=== PATIENT | male | born 1985 | race Caucasian/White ===

== ENCOUNTER 2016-06-12 02:09 | Emergency (ER) | payer SELFPAY ==
[2016-06-12] MEDS ORDERED: ATARAX 25 MG PO ONE (02:30)
[2016-06-12] MEDS ORDERED: ATARAX 25 MG ONE (02:34)
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
[2016-06-12 03:08] VITALS: BP 146/80; PULSE 100; O2SAT 96
== END 2016-06-12 03:00 | disposition home or self-care (01) ==
LOC: ED 02:09
DX: B86 Scabies (principal)
CPT/HCPCS: 99282; A9270-GY

== ENCOUNTER 2019-07-01 16:33 | Emergency (ER) | payer MEDICAID ==
[2019-07-01 16:45] VITALS: BP 140/83; PULSE 104; O2SAT 100
--- NOTE | 2019-07-01 17:53 | ERPHSYRPT ---
- History of Present Illness Patient Subjective Stated Complaint: "sore throat" Triage Nursing Assessment: Pt presents alert et oriented. 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 Denies respiratory distress at this time. Oropharynx noted to have errythema. Symmetrical chest expansion. Lungs clear with adequate airflow. Denies nausea/vomitng. Abdomen soft non-tender. Allergies/Adverse Reactions: Penicillins Allergy (Intermediate, Verified 07/01/19 16:38) Hives Immunizations Up to Date: Yes Travel Risk - International Travel Have you traveled outside of the country in past 3 weeks: No Have you or anyone close to you been diagnosed with or: No Do your reside in a community with a known COVID-19 case?: Yes If Yes where:: [facility] - Coronavirus Screening Has patient experienced Coronavirus symptoms: Yes Symptoms experienced: respiratory symptoms (i.e.C[place],shortness of breath), muscle pain Date of fever onset:: 06/26/19 - Past Medical History Pertinent Past Medical History: No ENT History: No Pertinent History Cardiac History: No Pertinent History Respiratory History: Asthma Endocrine Medical History: No Pertinent History Musculoskeletal History: No Pertinent History GI Medical History: No Pertinent History History: No Pertinent History Psycho-Social History: No Pertinent History Male Reproductive Disorders: No Pertinent History - Past Surgical History Past Surgical History: No - Social History Smoking Status: Current every day smoker How long have you smoked: 15 Exposure to second hand smoke: No Drug Use: none Patient Lives Alone: Yes ( and son) - Nursing Vital Signs Nursing Vital Signs: Initial Vital Signs Temperature 98.1 F 07/01/19 16:34 Pulse Rate 104 H 07/01/19 16:34 Respiratory Rate 18 07/01/19 16:34 Blood Pressure 140/83 07/01/19 16:34 O2 Sat by Pulse Oximetry 100 07/01/19 16:34 - Physical Exam SpO2: 100 Lab/Rad Data: Laboratory Results 07/01/19 Range/Units Unknown Group A Strep Antibody DETECTED (NEGATIVE) - Departure Departure Disposition: Home Clinical Impression: Strep pharyngitis Condition: Stable Critical Care Time: No Referrals: DOCTOR,NO FAMILY [Primary Care Provider] - YADIRA BRAGG [ACTIVE STAFF] - Additional Instructions: Discharge/Care Plan TONY SMITH was seen on 07/01/19 in the Emergency Room. The patient was counseled regarding Diagnosis,Lab results, Imaging studies, need for follow up and when to return to the Emergency Room. Prescriptions given: Discharge Note I have spoken with the patient and/or caregivers. I have explained the patient' s condition, diagnosis and treatment plan based on the information available to me at this time. I have answered the patient's and/or caregiver's questions and addressed any concerns. The patient and/or caregivers have as good understanding of the patient's diagnosis, condition and treatment plan as can be expected at this point. The vital signs have been stable. The patient's condition is stable and appropriate for discharge from the emergency department. The patient will pursue further outpatient evaluation with the primary care physician or other designated or consulting physician as outlined in the discharge instructions. The patient and/or caregivers are agreeable to this plan of care and follow-up instructions have been explained in detail. The patient and/or caregivers have received these instruction. The patient/and or caregivers are aware that any significant change in condition or worsening of symptoms should prompt an immediate return to this or the closest emergency department or call 911. Prescriptions: Azithromycin 250 mg [Zithromax 250 MG TABLET] 250 mg PO ZPACK #6 tablet
== END 2019-07-01 18:10 | disposition home or self-care (01) ==
LOC: ED 16:33
DX: J02.0 Streptococcal pharyngitis (principal); J45.909 Unspecified asthma, uncomplicated; Z72.0 Tobacco use
CPT/HCPCS: 87651; 99283

== ENCOUNTER 2021-07-23 12:45 | Emergency (ER) | payer OTHER ==
[2021-07-23] MEDS ORDERED: MORPHINE SULFATE 4 MG INJ IV ONE (13:28)
[2021-07-23] MEDS ORDERED: Sodium Chloride 0.9% 1000 ML 1,000 ML IV STA (13:28)
[2021-07-23] MEDS ORDERED: Zofran 4 MG/2 ML VIAL IV ONE (13:28)
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
[2021-07-23] MEDS ORDERED: Zofran 4 MG/2 ML VIAL ONE (13:35)
[2021-07-23] MEDS ORDERED: Sodium Chloride 0.9% 1000 ML 1,000 ML ONE (13:35)
[2021-07-23] MEDS ORDERED: MORPHINE SULFATE 4 MG INJ ONE (13:35)
[2021-07-23 13:42] LABS: Basophil (Absolute #) 0.05 x10^3/uL (0-0.4); Eosinophil % 0.7 % (0.00-5.0); Eosinophil (Absolute #) 0.11 x10^3/uL (0-0.5); Hematocrit 55.5 % (42-50); Hemoglobin 19.2 g/dL (12.5-18.0); Lymphocyte (Absolute #) 2.74 x10^3/uL (1.0-4.6); Lymphocytes % 17.9 % (24.0-44.0); Mean Cell Volume 91.1 fL (78-100); Mean Corpuscular Hemoglobin 31.5 pg (26-32); Mean Corpuscular Hgb Concent. 34.6 g/dL (32-36); Mean Platelet Volume 9.5 fL (7.5-11.0); Monocyte (Absolute #) 1.52 x10^3/uL (0.0-1.3); Monocytes % 9.9 % (0.0-12.0); Neutrophil % 70.7 % (36.0-66.0); Platelet Count 427 x10^3/uL (150-450); Red Blood Count 6.09 x10^6/uL (4.1-5.6); Red Cell Distribution Width 12.8 % (11.5-14.0); White Blood Count 15.3 x10^3/uL (4.0-10.5)
[2021-07-23 13:59] LABS: Bacteria RARE /HPF (NEGATIVE); Mucus MANY /HPF (NEGATIVE); WBC 0-2 /HPF (0-5)
[2021-07-23 14:00] LABS: Appearance SLIGHTLY CLOUDY (CLEAR); Bilirubin SMALL (NEGATIVE); Glucose NEGATIVE (NEGATIVE); Ketones NEGATIVE (NEGATIVE); RBC TRACE-INTACT Ery/ul (0-5)
[2021-07-23 14:01] LABS: Nitrite NEGATIVE (NEGATIVE); Protein,Urine Dip TRACE (Negative); Urine Cultured Indicated? YES; Urobilinogen 1 mg/dL (0-1)
[2021-07-23 14:02] LABS: Dipstick done @ ? MAIN LAB
[2021-07-23 14:14] LABS: ALBUMIN 4.9 g/dL (3.5-5.0); ALKALINE PHOSPHATASE 34 U/L (38-126); ANION GAP 15.5 MEQ/L (5-15); BLOOD UREA NITROGEN 10 mg/dL (9-20); CHLORIDE 99 mmol/L (98-107); Calcium 10.4 mg/dL (8.4-10.2); Carbon Dioxide 29 mmol/L (22-30); EST GLOMERULAR FILTRATION RATE > 60.0 ML/MIN; Glucose 112 mg/dL (74-106); LIPASE 1114 U/L (23-300); Potassium 4.5 mmol/L (3.5-5.1); SGOT/AST 61 U/L (17-59); SGPT/ALT 116 U/L (0-50); SODIUM 139 mmol/L (137-145); Total Protein 8.6 g/dL (6.3-8.2)
[2021-07-23 17:39] VITALS: BP 99/84; PULSE 68; O2SAT 97
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
== END 2021-07-23 17:38 | disposition home or self-care (01) ==
LOC: ED 12:45
DX: K85.90 Acute pancreatitis without necrosis or infection, unspecified (principal); R74.8 Abnormal levels of other serum enzymes; R10.32 Left lower quadrant pain; R10.12 Left upper quadrant pain; S70.212A Abrasion, left hip, initial encounter; S40.211A Abrasion of right shoulder, initial encounter; S30.810A Abrasion of lower back and pelvis, initial encounter; V86.06XA Driver of dirt bike or motor/cross bike injured in traffic accident, initial encounter; Y93.55 Activity, bike riding; Z72.0 Tobacco use; Z79.891 Long term (current) use of opiate analgesic
CPT/HCPCS: 36000; 36415; 71260; 74177; 80053; 81015; 82550; 83690; 85025; 87086; 96360; 96374; 96375; 99284; J2270; J2405

== ENCOUNTER 2022-08-04 17:58 | Emergency (ER) | payer OTHER ==
[2022-08-04 18:14] VITALS: BP 139/100; PULSE 102; O2SAT 98
--- NOTE | 2022-08-04 18:37 | ERPHSYRPT ---
- History of Present Illness Time Seen by Provider: 08/04/22 18:36 Source: patient Exam Limitations: no limitations Patient Subjective Stated Complaint: Pt twisted his right ankle in a hole in a yard yesterday and then did it again today in another yard Triage Nursing Assessment: Pt brought to the ER by his , hypertensive, rates pain as 09/10, was vomiting at home due to the pain, right lateral ankle swollen but no bruising, unable to place weight on it, pulse is normal, cap refil is normal, denies any other injuries Physician History: Pt c/o ankle pain, right. Sustained injury yesterday, but pain and swelling worsening . Lawrence immediate pain on the lateral side. Was unable to ambulate after incident. + h/o previous ankle injuries. Method of Injury: fell, twisted Occurred: yesterday Quality: constant, sharpness, throbbing Severity of Pain-Max: severe Severity of Pain-Current: severe Lower Extremities Pain: ankle: right Modifying Factors: Improves With: pain medication, rest. Worsens With: movement Associated Symptoms: unable to bear weight Allergies/Adverse Reactions: Penicillins Allergy (Intermediate, Verified 08/04/22 18:14) Hives Home Medications: Venlafaxine HCl ER 37.5 mg [Effexor ER 37.5 MG] 37.5 mg PO DAILY 08/04/22 [History] Hx Tetanus, Diphtheria Vaccination/Date Given: Yes Hx Influenza Vaccination/Date Given: No Hx Pneumococcal Vaccination/Date Given: No Travel Risk - International Travel Have you traveled outside of the country in past 3 weeks: No - Coronavirus Screening Are you exhibiting any of the following symptoms?: No Close contact with a COVID-19 positive Pt in past 14-21 Days: No - Vaccine Status Have you recieved a Covid-19 vaccination: No - Review of Systems Constitutional: No Symptoms Eyes: No Symptoms Respiratory: No Symptoms Cardiac: No Symptoms Abdominal/Gastrointestinal: Nausea, Vomiting, No Abdominal Pain, No Diarrhea, No Constipation Musculoskeletal: Injury, Joint Pain (right ankle), Joint Swelling Skin: No Symptoms Neurological: No Symptoms - Past Medical History Pertinent Past Medical History: Yes ENT History: No Pertinent History Cardiac History: No Pertinent History Respiratory History: Asthma Endocrine Medical History: No Pertinent History Musculoskeletal History: No Pertinent History GI Medical History: No Pertinent History History: No Pertinent History Psycho-Social History: Depression Male Reproductive Disorders: No Pertinent History Other Medical History: broken tail bone - Past Surgical History Past Surgical History: No - Social History Smoking Status: Current every day smoker How long have you smoked: 15 Exposure to second hand smoke: Yes Drug Use: none Patient Lives Alone: No - Nursing Vital Signs Nursing Vital Signs: Initial Vital Signs Temperature 98.0 F 08/04/22 18:00 Pulse Rate 102 H 08/04/22 18:00 Blood Pressure 139/100 08/04/22 18:00 O2 Sat by Pulse Oximetry 98 08/04/22 18:00 Pain Scale Pain Intensity 7 - Physical Exam General Appearance: no apparent distress Ankle Exam: right ankle: bone tenderness, ecchymosis, joint effusion, limited range of motion, pain, soft tissue tenderness, swelling Neuro/Tendon Exam: normal sensation Mental Status Exam: alert, oriented x 3, cooperative Skin Exam: normal color, warm, dry SpO2 Interpretation: normal SpO2: 98 O2 Delivery: Room Air Comments: Ankle Exam: Right ankle examined. + edema. but +TTP on lateral malleoliNo TTP over posterior malleoli, tip of medial malleoli, proximal 5th MT or navicular. Neg squeeze test. Limited ROM. Limited overall strength. ATFL increased laxity on Anterior Drawer. Deltoid Ligament Intact. - Course Nursing assessment & vital signs reviewed: Yes - Radiology Exams Right Ankle X-ray Interpretation: Interpreted by me, Negative - Progress Progress: unchanged Progress Note: Xray showed no acute fx, but exam showed increased laxity of lateral ankle. Long leg walking boot Limited wt bearing. Early mobilization. [id number] exercises. Ice 4-5x/day for 10-15min Elevation. Pain control. F/U w/ walk in ortho clinic Counseled pt/family regarding: diagnosis, need for follow-up, rad results Medical Desision Making - Diagnostic Testing Diagnostic test were ordered, analyzed, and reviewed by me: Yes Radiological Interpretation: Interpreted by me - Risk of complications Low Risk: Low risk of morbidity from additional dx testing or treatment - Departure Departure Disposition: Home Clinical Impression: Right ankle sprain Condition: Good Critical Care Time: No Referrals: HEMANT JONES NP [NON-STAFF PHY W/O PRIVILEGES] - Follow up/PCP as directed ORTHO - LOYDA,HAMILTON, [employer] [NON-STAFF PHY W/O PRIVILEGES] - Follow up with PCP 2 days Instructions: Ankle Sprain (DC) Forms: Ortho Referral
--- NOTE | 2022-08-04 21:03 | XRAY ---
Indication: Pain and swelling. Comparison: None 3 view right ankle demonstrates moderate lateral soft tissue swelling and tiny posterior heel spur. No other bony, articular, or soft tissue abnormalities.
== END 2022-08-04 18:55 | disposition home or self-care (01) ==
LOC: ED 17:58
DX: S93.401A Sprain of unspecified ligament of right ankle, initial encounter (principal); W18.42XA Slipping, tripping and stumbling without falling due to stepping into hole or opening, initial encounter; Z79.899 Other long term (current) drug therapy; Z28.310 Unvaccinated for COVID-19; Z72.0 Tobacco use
CPT/HCPCS: 73610; 99283